=== PATIENT | female | born 1945 | race Caucasian/White ===

== ENCOUNTER 2018-12-14 17:41 | Emergency (ER) | payer OTHER ==
[~2018-12-14] VITALS: Ht 160 cm; Wt 64.4 kg
[2018-12-14] MEDS ORDERED: IV NORMAL SALINE 1000ML BAG 1,000 ML IV SCH (18:10)
[2018-12-14 18:17] LABS: BASO % 1 % (0-3); EOS # 0.1 x10^3/uL (0.0-0.7); EOS % 1 % (0-3); HEMATOCRIT 49.6 % (36.0-47.0); HEMOGLOBIN 16.6 g/dL (12.0-15.5); LYMPH # 1.3 x10^3/uL (1.0-4.8); LYMPH % 19 % (24-48); MEAN CORPUSCULAR HEMOGLOBIN 30 pg (25-35); MEAN CORPUSCULAR HGB CONC 34 g/dL (31-37); MEAN CORPUSCULAR VOLUME 89 fL (79-100); MONO # 0.5 x10^3/uL (0.0-1.1); MONO % 8 % (0-9); NEUT # 4.9 x10^3uL (1.8-7.7); NEUT % 72 % (31-73); PLATELET COUNT 193 x10^3/uL (140-400); RED BLOOD COUNT 5.58 x10^6/uL (3.50-5.40); RED CELL DISTRIBUTION WIDTH 13.4 % (11.5-14.5); WHITE BLOOD COUNT 6.8 x10^3/uL (4.0-11.0)
[2018-12-14 18:33] LABS: CALCIUM 9.2 mg/dL (8.5-10.1); CREATININE 0.7 mg/dL (0.6-1.0); GFR 82.5; POTASSIUM 3.8 mmol/L (3.5-5.1)
[2018-12-14 18:38] LABS: ALBUMIN 4.1 g/dL (3.4-5.0); ALBUMIN/GLOBULIN RATIO 1.3 (1.0-1.7); TOTAL BILIRUBIN 0.4 mg/dL (0.2-1.0); TOTAL PROTEIN 7.2 g/dL (6.4-8.2)
[2018-12-14 18:42] LABS: CREATINE KINASE 61 U/L (26-192)
--- NOTE | 2018-12-14 19:18 | PHYS DOC ---
Past Medical History Past Medical History: Hypotension Past Surgical History: Hip Replacement Additional Past Surgical Histo: LEFT HIP, THYROIDECTOMY,D&C Alcohol Use: None Drug Use: None Adult General Chief Complaint Chief Complaint: RAPID HEART RATE HPI HPI Patient is a 73 year old female who presents with complaining of palpitation. Patient states she had history of total thyroidectomy and taking [place] thyroid supplement. Increase of her medication recently because of hypothyroidism and had kind of weakness in afternoon and check her pulse that was faster than her usual and decided to cut down on the dose of Tylenol at supplement but continued to have a fast heartbeat and decided to come to ER. Patient states she tried to detox herself and eating only salad and vegetables and thinks maybe she had decrease of electrolyte or protein. Patient denies chest pain, shortness of breath, fever and chills, palpitation, focal neuro deficit, any medical problem except for thyroid problem. Review of Systems Review of Systems Constitutional: Denies fever or chills [] Eyes: Denies change in visual acuity, redness, or eye pain [] HENT: Denies nasal congestion or sore throat [] Respiratory: Denies cough or shortness of breath [] Cardiovascular: No additional information not addressed in HPI [] GI: Denies abdominal pain, nausea, vomiting, bloody stools or diarrhea [] : Denies dysuria or hematuria [] Musculoskeletal: Denies back pain or joint pain [] Integument: Denies rash or skin lesions [] Neurologic: Denies headache, focal weakness or sensory changes [] Endocrine: Denies polyuria or polydipsia [] All other systems were reviewed and found to be within normal limits, except as documented in this note. Current Medications Current Medications Current Medications Medications (Trade) Dose Ordered Sig/Maye Start Time Stop Time Status Last Admin Dose Admin Lorazepam (Ativan) 0.5 mg 1X ONCE 12/14/18 18:15 12/14/18 18:16 DC 12/14/18 18:44 0.5 MG Sodium Chloride 1,000 ml @ 1,000 mls/hr Q1H 12/14/18 18:10 12/14/18 19:09 DC 12/14/18 18:47 1,000 MLS/HR Allergies Allergies Allergies Coded Allergies Type Severity Reaction Last Updated Verified No Known Drug Allergies 12/14/18 No Physical Exam Physical Exam Constitutional: Well developed,mild distress, non-toxic appearance. [] HENT: Normocephalic, atraumatic, bilateral external ears normal, oropharynx moist, no oral exudates, nose normal. [] Eyes: PERRLA, EOMI, conjunctiva normal, no discharge. [] Neck: Normal range of motion, no tenderness, supple, no stridor. [] Cardiovascular:Heart rate regular rhythm, no murmur [] Lungs & Thorax: Bilateral breath sounds clear to auscultation [] Abdomen: Bowel sounds normal, soft, no tenderness, no masses, no pulsatile masses. [] Skin: Warm, dry, no erythema, no rash. [] Back: No tenderness, no CVA tenderness. [] Extremities: No tenderness, no cyanosis, no clubbing, ROM intact, no edema. [] Neurologic: Alert and oriented X 3, normal motor function, normal sensory function, no focal deficits noted. [] Psychologic: Affect anxious, judgement normal, mood normal. [] Current Patient Data Vital Signs Vital Signs Date Time Temp Pulse Resp B/P (MAP) Pulse Ox O2 Delivery O2 Flow Rate FiO2 12/14/18 19:30 96 20 138/69 (92) 99 Room Air 12/14/18 17:41 98.0 98.0 Lab Values Laboratory Tests Test 12/14/18 18:10 White Blood Count 6.8 x10^3/uL (4.0-11.0) Red Blood Count 5.58 x10^6/uL (3.50-5.40) H Hemoglobin 16.6 g/dL (12.0-15.5) H Hematocrit 49.6 % (36.0-47.0) H Mean Corpuscular Volume 89 fL (79-100) Mean Corpuscular Hemoglobin 30 pg (25-35) Mean Corpuscular Hemoglobin Concent 34 g/dL (31-37) Red Cell Distribution Width 13.4 % (11.5-14.5) Platelet Count 193 x10^3/uL (140-400) Neutrophils (%) (Auto) 72 % (31-73) Lymphocytes (%) (Auto) 19 % (24-48) L Monocytes (%) (Auto) 8 % (0-9) Eosinophils (%) (Auto) 1 % (0-3) Basophils (%) (Auto) 1 % (0-3) Neutrophils # (Auto) 4.9 x10^3uL (1.8-7.7) Lymphocytes # (Auto) 1.3 x10^3/uL (1.0-4.8) Monocytes # (Auto) 0.5 x10^3/uL (0.0-1.1) Eosinophils # (Auto) 0.1 x10^3/uL (0.0-0.7) Basophils # (Auto) 0.0 x10^3/uL (0.0-0.2) Sodium Level 141 mmol/L (136-145) Potassium Level 3.8 mmol/L (3.5-5.1) Chloride Level 102 mmol/L (98-107) Carbon Dioxide Level 25 mmol/L (21-32) Anion Gap 14 (6-14) Blood Urea Nitrogen 16 mg/dL (7-20) Creatinine 0.7 mg/dL (0.6-1.0) Estimated GFR (Cockcroft-Gault) 82.5 BUN/Creatinine Ratio 23 (6-20) H Glucose Level 137 mg/dL (70-99) H Calcium Level 9.2 mg/dL (8.5-10.1) Total Bilirubin 0.4 mg/dL (0.2-1.0) Aspartate Amino Transferase (AST) 26 U/L (15-37) Alanine Aminotransferase (ALT) 33 U/L (14-59) Alkaline Phosphatase 74 U/L (46-116) Creatine Kinase 61 U/L (26-192) Creatine Kinase MB (Mass) 1.2 ng/mL (0.0-3.6) Creatine Kinase MB Relative Index % (0-4) Troponin I Quantitative < 0.017 ng/mL (0.000-0.055) BS-Bqo-E-Type Natriuretic Peptide 349 pg/mL (0-124) H Total Protein 7.2 g/dL (6.4-8.2) Albumin 4.1 g/dL (3.4-5.0) Albumin/Globulin Ratio 1.3 (1.0-1.7) Lipase 162 U/L (73-393) Thyroid Stimulating Hormone (TSH) 18.639 uIU/mL (0.358-3.74) H Laboratory Tests 12/14/18 18:10 Laboratory Tests 12/14/18 18:10 EKG EKG EKG Interpreted by me. EKG at 1751 showed sinus tachycardia at rate of 113, left fourth axis, normal CA and QT intervals, no acute ST and T-wave abnormalities. Radiology/Procedures Radiology/Procedures Chest x-ray interpreted by me.. Chest x-ray did not show acute finding. Course & Med Decision Making Course & Med Decision Making Pertinent Labs and Imaging studies reviewed. (See chart for details) Evaluation of patient in ER showed 73-year-old female patient with complaining of Tylenol problem and palpitation and weakness. Patient taking Xarelto hydroxyzine supplement and had TSH of 18 and was advised to follow-up with her primary care physician. She was treated with IV fluid and felt better. discharge: I've spoken with the patient and/or caregivers. I've explained the patient's condition, diagnosis and treatment plan based on information available to me at this time. I've answered the patient's and/or caregivers questions and addressed any concerns. The patient and/or caregivers have a good understanding the patient's diagnosis, condition and treatment plan as can be expected at this point. Vital signs have been stabilized. The patient's condition is stable for discharge from the emergency department. The patient will pursue further outpatient evaluation with her primary care provider or other designated consulting physician as outlined in the discharge instructions. Patient and/or caregivers are agreeable to this plan of care and follow-up instructions have been explained in detail. The patient and/or caregivers have received these instructions in written format and expressed understanding of these discharge instructions. The patient and her caregivers are aware that if any significant change in condition or worsening of symptoms should prompt him to immediately return to this of the closest emergency department. If an emergent department is not readily available I would encourage him to call 911. Nate Disclaimer Nate Disclaimer This electronic medical record was generated, in whole or in part, using a voice recognition dictation system. Departure Departure Impression: Primary Impression: Palpitation Additional Impressions: Hypothyroidism Anxiety Dehydration Disposition: HOME, SELF-CARE (at 1716) Condition: IMPROVED Referrals: NON,STAFF (PCP) Patient Instructions: Dehydration, Adult, Palpitations, Thyroid Diseases, Thyroid-Stimulating Hormone Additional Instructions: Follow-up with your physician in one or 2 days regarding adjustment of doses of your thyroid medication Drink plenty of liquids Return to ER if not getting better Problem Qualifiers LOUANN WHITE MD Dec 14, 2018 19:17
[2018-12-14 19:30] VITALS: BP 138/69
--- NOTE | 2018-12-15 06:32 | EKG ---
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
--- NOTE | 2018-12-15 08:07 | RAD ---
PORTABLE CHEST 1V History: Palpitations Comparison: None. Findings: Single view of the chest is submitted. There is no infiltrate, pneumothorax, or effusion. The pericardial cardiac silhouette is within normal limits in size. Impression: 1. There is no evidence of acute cardiopulmonary disease. Electronically signed by: Jorge Hood MD (12/15/2018 8:04 AM) [id number]
== END 2018-12-14 19:49 | disposition home or self-care (01) ==
LOC: ER 17:41
DX: R00.2 Palpitations (principal); F41.9 Anxiety disorder, unspecified; E86.0 Dehydration; E89.0 Postprocedural hypothyroidism; Z96.649 Presence of unspecified artificial hip joint
CPT/HCPCS: 36415; 71045; 80053; 82553; 83690; 83880; 84443; 84484; 85025; 93005; 96361; 96374; 99285; J2060; J7030

== ENCOUNTER 2021-08-14 18:09 | Emergency (ER) | payer MEDICARE, OTHER ==
[~2021-08-14] VITALS: Ht 162.6 cm; Wt 67.7 kg
--- NOTE | 2021-08-14 18:17 | PHYS DOC ---
Past Medical History Past Medical History: Hypotension Past Surgical History: Hip Replacement Additional Past Surgical Histo: LEFT HIP, THYROIDECTOMY,D&C Smoking Status: Never Smoker Alcohol Use: None Drug Use: None General Adult HPI: HPI: Patient is a 75 year old female who presents with palpitations and feeling in her heart is racing, symptoms began a few days ago, worsening today. She reports that she has a history of an abnormal heart beat. She is unable to calculate any details of this. She sees a rabble furnace tender in [place]. She cannot recall the exact name of his rabble furnace tender, she cannot tell me the exact location of where this rabble furnace tender practices. She indicates that she had prev iously been on flecainide, but her doctor had placed her on daily diltiazem. She reports that she took extra doses of at bedtime flecainide over the past few nights, as directed by her, not her rabble furnace tender or any physician. She reports that she feels a little bit lightheaded, denies syncope. She denies chest pain or dyspnea. She reports for the past several days, she has had a "cold." She reports a dry cough. Denies hemoptysis. She reports that her also has a similar "cold." Neither the patient or her are vaccinated against Covid nor influenza. The patient reports that she "does not believe in COVID." She sees a manager of housekeeping who prescribes her multiple supplements, the names of most she cannot recall. One of them is "Q 10." She reports that she takes warfarin, and she reports compliance with this. I specifically asked her if she has a history of SVT, atrial flutter, atrial fibrillation. She and her report that they are not sure. She was seen here once in the ER in 2019 for issues related to her thyroid disease, dehydration and anxiety. She has not seen a rabble furnace tender here, no admissions here at this hospital. She denies any recent travel history. She denies recent hospitalization within the last 90 days. Review of Systems: Review of Systems: Constitutional: Denies fever or chills. [] Eyes: Denies change in visual acuity. [] HENT: Nasal congestion. Denies sore throat. Respiratory: Dry cough. Denies dyspnea. Cardiovascular: Denies chest pain or edema. [] GI: Denies abdominal pain, nausea, vomiting. Reports chronic diarrhea. : Denies urinary symptoms. Musculoskeletal: Denies back pain or joint pain. [] Integument: Denies rash. [] Neurologic: Denies headache, focal weakness or sensory changes. [] Psychiatric: Denies depression or anxiety. [] Heart Score: C/O Chest Pain: No Risk Factors: Risk Factors: DM, Current or recent (<one month) smoker, HTN, HLP, family history of CAD, obesity. Risk Scores: Score 0 - 3: 2.5% MACE over next 6 weeks - Discharge Home Score 4 - 6: 20.3% MACE over next 6 weeks - Admit for Clinical Observation Score 7 - 10: 72.7% MACE over next 6 weeks - Early Invasive Strategies Allergies: Allergies: Allergies Coded Allergies Type Severity Reaction Last Updated Verified No Known Drug Allergies 12/14/18 No Physical Exam: PE: Constitutional: Well developed, well nourished, no acute distress, non-toxic appearance. [] HENT: Normocephalic, atraumatic Eyes: Sclera are clear and anicteric Neck: Normal range of motion, no tenderness, supple, no stridor. Trachea midline. No JVD. Cardiovascular:Irregulary irregular, tachycardic, +2 radial and +2 dorsalis pedis pulses bilaterally Lungs & Thorax: Bilateral breath sounds clear to auscultation, no rales, rhonchi or wheezing Abdomen: Abdomen is soft, non-distended, non-tender to palpation, normal bowel sounds Skin: Warm, dry, no erythema, no rash. [] Back: No tenderness, no CVA tenderness. [] Extremities: No tenderness, no cyanosis, no clubbing, ROM intact, no edema. No calf tenderness. Neurologic: Alert and oriented X 3, normal motor function, normal sensory function, no focal deficits noted. [] Psychologic: Affect is somewhat bizarre and anxious EKG: EKG: EKG is interpreted at 1838 Rhythm is atrial fibrillation with RVR Rate is 152 bpm [place] is left No STEMI Radiology/Procedures: Radiology/Procedures: IMAGING REPORT Signed PATIENT: JADEN FALL ACCOUNT: [id number] : 1945 LOCATION: ER AGE: 75 SEX: F EXAM STATUS: REG ER ORD. PHYSICIAN: FLACO COLUNGA DO REASON: cough PROCEDURE: PORTABLE CHEST 1V Single view chest dated 08/14/2021 7:20 PM: COMPARISON: 12/14/2018 Clinical Indication: Cough. Findings: Single upright portable exam of the chest was performed. Heart and mediastinal contours are stable. Lungs are clear. No consolidation or pleural effusion. No pneumothorax. IMPRESSION: No acute radiographic abnormality. Electronically signed by: Ronny Huerta MD (08/14/2021 7:22 PM) [facility] [place] and SIGNED BY: RONNY HUERTA MD DATE: 08/14/21 [id number] 0 Course & Med Decision Making: Course & Med Decision Making Pertinent Labs and Imaging studies reviewed. (See chart for details) The patient is given 1 dose of IV diltiazem. She spontaneously converted to a sinus rhythm, rate in the 80s and 90s. Her blood pressure is stable. She continues to deny chest pain or dyspnea. No evidence of respiratory distress or hypoxia. Covid assay is positive. I explained that this was expected, given her unvaccinated status as well as her symptoms. There is no current indication of obvious Covid pneumonitis on chest x-ray. No evidence of hypoxia or respiratory distress. Troponin is not indicative of acute ischemia. She denies chest pain. EKG demonstrates atrial fibrillation with RVR, without acute ischemic changes. There is no current indication for admission, further invasive exams or transfer at this time. I did strongly encouraged her to take her medications only as specifically directed by her rabble furnace tender. She seems to be at least mildly confused about how to take her medications appropriately, I recommend she contact her physician's office in the morning to confirm these doses and this regimen, to be taken only as directed and as appropriately. The patient is indignant about her diagnosis of Covid. I explained that she and her both have Covid, given that he had symptoms prior to onset of hers, and they should both self isolate and perform contact tracing. She has reportedly been around multiple people, including multiple family members within the last 14 days, who are also unvaccinated. She is to contact them and let them know of her positive Covid status, they must quarantine and act accordingly and appropriately. The patient asks me multiple times about prescribing ivermectin or hydroxychloroquine. I explained that this is inappropriate, I will not do this, and there is no evidence-based science for prescribing or taking these medications in the setting of Covid. She argues with me multiple times, she reports that she "knows people" who have taken these medicines before. I explained that this is still not appropriate, and just because she anecdotally knows someone who somehow was able to obtain these medications and survived, does not make this appropriate medical care, and with her medical conditions, I strongly discouraged her from seeking out these inappropriate, nonscientific, and potentially dangerous or deadly medications. I did tell her to contact her PCP to discuss possible outpatient monoclonal antibody infusion, as she would qualify. I recommend she get a pulse oximeter, and she should monitor for any evidence of hypoxia with worsening dyspnea or chest pain symptoms. Strict re turn precautions and home care instructions are given. She verbalizes understanding. She is going to be discharged home, in stable condition Dragon Disclaimer: Nate Disclaimer: This electronic medical record was generated, in whole or in part, using a voice recognition dictation system. Departure Departure Impression: Primary Impression: Atrial fibrillation with rapid ventricular response Additional Impression: COVID-19 Disposition: HOME / SELF CARE / HOMELESS Condition: STABLE Referrals: ALYSSA ROWELL MD (PCP) Patient Instructions: Atrial Fibrillation Additional Instructions: You have been tested for or diagnosed with COVID-19. It is an infection caused by a new type of coronavirus. COVID-19 will cause cold-like or mild flu symptoms in most. It can cause more severe symptoms like problems breathing in some. There is no treatment for COVID-19. The body will clear the infection over time. Self-care will help to ease discomfort. Steps to Take: Self-Care Rest as needed. Healthy habits may help you feel better. Steps include: Choose healthy foods including fruits and vegetables. Drink water throughout the day. Get plenty of sleep each night. If you smoke, try to quit. It may ease breathing. Avoid alcohol. Keep Others Healthy The virus can spread to others. Droplets are released every time you sneeze or cough. The droplets can get into the mouth, nose, or eyes of people near you and lead to infection. To lower the chances of spreading COVID-19 to others: Stay at home until your doctor has said it is safe to leave. If you tested positive this will mean staying isolated until both of the following are true: At least 7 days have passed since the start of illness. You are free of fever for at least 72 hours without the use of medicine. During this time: - Avoid public areas, events, or transportation. Do not return to work or school until your doctor has said it is safe to do so. - Call ahead if you need to go to a medical center. Let them know you may have COVID-19. It will help them guide you where to go. They may also ask you to wear a facemask when you come to the office. - If you call for emergency medical services, let them know you may have COVID- 19. While at home: - Try to avoid close contact with others. Stay about 6 feet away. - If possible, spend most of your time in a separate room from others. - Use a face mask if you will be in close contact with others such as sharing a room or vehicle. - Have someone wipe down common surfaces in the home. Use household spring upholsterer every day on areas like doorknobs, counters, or sinks. - Cough or sneeze into a tissue. Throw the tissue away right after use. If a tissue is not available, cough or sneeze into your elbow. - Wash your hands often. Wash them after sneezing or coughing. Use soap and water and wash for at least 20 seconds. Alcohol based hand exhibit cleaner can be used if soap and water is not available. - Do not prepare food for others. Avoid sharing personal items like forks, spoons, or toothbrushes. - Avoid close contact with pets while you are sick. There is no evidence of the virus passing to pets. This is a safety step until more is known about this virus. Isolation can be frustrating. Social interaction can help. Keep in touch with friends and family through phone and tech options. You can still interact with others in your home, just keep a safe distance of about 6 feet. Follow-up: Your doctors office will check in with you to see if there are any changes in your health. You may be asked to keep track of symptoms to share with them. They will also let you know when you are clear to be in public again. Problems to Look Out For: Contact your doctor if your recovery is not going as you expect. Get emergency care if you have problems such as: - Trouble breathing - Nonstop chest pain or pressure - Changes in awareness, confusion, or problems waking - Lips or face have bluish color - Worsening of symptoms If you think you have an emergency, call for emergency medical services right away. As taken from [facility] [place] [facility] Please watch your oxygen at home, I recommend obtaining an full-[id number]-[id number] pulse oximeter, and if you develop severe chest pain or shortness of breath, with oxygen levels below 90%, you need to return to the ER immediately. Also return for any severe abdominal pain, uncontrolled vomiting, dehydration, focal weakness, if you are acutely injured or suffering any trauma, or for any other concerns. Please only take your antiarrhythmics as directed by your rabble furnace tender, I recommend contacting their office tomorrow to confirm your spe cific doses and regimen instructions. Continue to take your warfarin. Your INR level is therapeutic today. You must contact all people that you have been in contact within the last 14 days, explained that you are positive for Covid, in order to appropriately perform contact tracing, so these people can quarantine. In general, on average, if symptoms are to worsen it will be between day 7 and 10, so please know that your symptoms may potentially progress or worsen, though I am hopeful that that will not be the case for you. Please seek emergency care if that is the case. You may wish to contact your primary care physician to discuss outpatient monoclonal antibody infusion. FLACO COLUNGA DO Aug 14, 2021 18:17
[2021-08-14 18:58] LABS: BASO % 1 % (0-3); EOS % 0 % (0-3); HEMATOCRIT 46.9 % (36.0-47.0); HEMOGLOBIN 16.2 g/dL (12.0-15.5); LYMPH # 0.7 x10^3/uL (1.0-4.8); LYMPH % 18 % (24-48); MEAN CORPUSCULAR HEMOGLOBIN 31 pg (25-35); MEAN CORPUSCULAR HGB CONC 35 g/dL (31-37); MEAN CORPUSCULAR VOLUME 90 fL (79-100); MONO # 0.5 x10^3/uL (0.0-1.1); MONO % 13 % (0-9); NEUT # 2.7 x10^3/uL (1.8-7.7); NEUT % 69 % (31-73); PLATELET COUNT 107 x10^3/uL (140-400); RED BLOOD COUNT 5.23 x10^6/uL (3.50-5.40); RED CELL DISTRIBUTION WIDTH 13.8 % (11.5-14.5); WHITE BLOOD COUNT 3.9 x10^3/uL (4.0-11.0)
[2021-08-14 19:07] LABS: PROTHROMBIN TIME PATIENT 23.4 SEC (11.7-14.0)
--- NOTE | 2021-08-14 19:07 | EKG ---
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
[2021-08-14 19:11] LABS: CALCIUM 7.8 mg/dL (8.5-10.1); CREATININE 0.5 mg/dL (0.6-1.0); GFR 120.9
[2021-08-14 19:17] LABS: ALBUMIN 3.2 g/dL (3.4-5.0); ALBUMIN/GLOBULIN RATIO 0.9 (1.0-1.7); MAGNESIUM 2.2 mg/dL (1.8-2.4); TOTAL BILIRUBIN 0.3 mg/dL (0.2-1.0); TOTAL PROTEIN 6.6 g/dL (6.4-8.2)
--- NOTE | 2021-08-14 19:24 | RAD ---
Single view chest dated 08/14/2021 7:20 PM: COMPARISON: 12/14/2018 Clinical Indication: Cough. Findings: Single upright portable exam of the chest was performed. Heart and mediastinal contours are stable. L ungs are clear. No consolidation or pleural effusion. No pneumothorax. IMPRESSION: No acute radiographic abnormality. Electronically signed by: Ronny Huerta MD (08/14/2021 7:22 PM) LILI
[2021-08-14 19:38] VITALS: BP 128/61
[2021-08-14] MEDS ORDERED: POTASSIUM CHLORIDE 20 MEQ TABLET.ER. PO ONE (19:45)
[2021-08-14 20:09] LABS: INFLUENZA A PATIENT NEGATIVE (NEGATIVE); INFLUENZA B PATIENT NEGATIVE (NEGATIVE)
== END 2021-08-14 21:10 | disposition home or self-care (01) ==
LOC: ER 18:09
DX: U07.1 COVID-19 (principal); I48.20 Chronic atrial fibrillation, unspecified; I10 Essential (primary) hypertension
CPT/HCPCS: 36415; 71045; 80053; 83735; 83880; 84439; 84443; 84484; 85025; 85610; 85730; 87426; 87804; 93005; 96374; 99285; J3490

== ENCOUNTER 2021-11-02 11:15 | Inpatient (IN) | payer MEDICARE ==
[~2021-11-02] VITALS: Ht 160 cm; Wt 69.6 kg
[2021-11-02 11:56] LABS: BASO # 0.1 x10^3/uL (0.0-0.2); BASO % 1 % (0-3); EOS # 0.1 x10^3/uL (0.0-0.7); EOS % 1 % (0-3); HEMATOCRIT 39.1 % (36.0-47.0); HEMOGLOBIN 12.9 g/dL (12.0-15.5); LYMPH % 10 % (24-48); MEAN CORPUSCULAR HEMOGLOBIN 30 pg (25-35); MEAN CORPUSCULAR HGB CONC 33 g/dL (31-37); MEAN CORPUSCULAR VOLUME 92 fL (79-100); MONO # 0.9 x10^3/uL (0.0-1.1); MONO % 8 % (0-9); NEUT # 8.3 x10^3/uL (1.8-7.7); NEUT % 80 % (31-73); PLATELET COUNT 227 x10^3/uL (140-400); RED BLOOD COUNT 4.26 x10^6/uL (3.50-5.40); RED CELL DISTRIBUTION WIDTH 14.3 % (11.5-14.5); WHITE BLOOD COUNT 10.3 x10^3/uL (4.0-11.0)
[2021-11-02] MEDS ORDERED: AMIODARONE 150 MG in IV DEXTROSE 5% 100ML 100 ML IV ONE (12:00)
--- NOTE | 2021-11-02 12:04 | EKG ---
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
[2021-11-02 12:08] LABS: PROTHROMBIN TIME PATIENT 25.1 SEC (11.7-14.0)
--- NOTE | 2021-11-02 12:09 | RAD ---
XR CHEST 1V History: Short of air. Comparison: 10/15/2020 Technique: Portable AP radiograph of the chest. Findings: The lungs are adequately and symmetrically inflated. No focal airspace consolidation, pleural effusio n or pneumothorax. Cardiomediastinal silhouette and pulmonary vasculature are within normal limits. R esuscitation pads overlie the cardiomediastinal silhouette. Degenerative changes of the right shoulde r. Soft tissues are unremarkable. Impression: 1. No acute cardiopulmonary process. Electronically signed by: Eusebio Casey MD (11/02/2021 12:06 PM) [id number]
[2021-11-02] MEDS: AMIODARONE 450 MG in IV DEXTROSE 5% 250 ML IV PRN ×2 (12:14→16:08)
[2021-11-02 12:22] LABS: CALCIUM 8.9 mg/dL (8.5-10.1); CREATININE 0.7 mg/dL (0.6-1.0); POTASSIUM 3.2 mmol/L (3.5-5.1)
--- NOTE | 2021-11-02 12:32 | PDOC2 ---
NELSON EMMANUEL JOB COACH 11/02/21 1232: CARDIAC CONSULT DATE OF CONSULT Date of Consult DATE: 11/02/21 TIME: 12:21 REASON FOR CONSULT Reason for Consult: AFIB RVR REFERRING PHYSICIAN Referring Physician: [facility] SOURCE Source: Chart review, Patient HISTORY OF PRESENT ILLNESS HISTORY OF PRESENT ILLNESS This is a pleasant 75 yo female admitted for complains of not feeling good and fast heart rate. Reports that she was getting her INR today at the lab. she did not feel well and check her carotid pulse and it was fast. She felt weak. No lightheadedness. Denies any chest pain or SOA. No fever or chills and just had RTHA at [facility] last Friday and discharge Friday. She has hx of AFIB but no hx of VTE, and CAD. She sees [place]. Murry [place] [facility]. She takes warfarin and has been taking this for stroke prevention in over a yr at least. She takes flecainide at home. Denies hx of cardiomyopathy as well. Her right hip pain is controlled and currently has a wound vac on it. PAST MEDICAL HISTORY Cardiovascular: AFIB, HTN Pulmonary: Other (covid-19) Musculoskeletal: Osteoarthritis Dermatology: Other (right hip incision) PAST SURGICAL HISTORY Past Surgical History: Total hip replacement (right recent and left previous), Other (thyroidectomy) FAMILY HISTORY Family History: Heart Disease SOCIAL HISTORY Smoke: No ALCOHOL: none Drugs: None Lives: with Family ALLERGIES ALLERGIES: Coded Allergies: No Known Drug Allergies (Unverified , 11/02/21) ROS Review of System 14 point ROS evaluated with pertinent positives noted per HPI PHYSICAL EXAM General: Alert, Oriented X3, Cooperative, No acute distress HEENT: Atraumatic, Mucous membr. moist/pink Lungs: Other (diminished bases) Heart: No murmurs, Other (AFIB RVR) Extremities: No cyanosis, No edema Skin: No breakdown Neuro: Normal speech, Sensation intact Psych/Mental Status: Mental status NL, Mood NL MUSCULOSKELETAL: Osteoarthritic changes both hands VITALS/I&O VITALS/I&O: Vital Signs Date Time Temp Pulse Resp B/P (MAP) Pulse Ox O2 Delivery O2 Flow Rate FiO2 11/02/21 11:15 98.7 201 22 148/74 (98) 99 Room Air 98.7 LABS Lab: Laboratory Tests Test 11/02/21 11:34 White Blood Count 10.3 x10^3/uL (4.0-11.0) Red Blood Count 4.26 x10^6/uL (3.50-5.40) Hemoglobin 12.9 g/dL (12.0-15.5) Hematocrit 39.1 % (36.0-47.0) Mean Corpuscular Volume 92 fL (79-100) Mean Corpuscular Hemoglobin 30 pg (25-35) Mean Corpuscular Hemoglobin Concent 33 g/dL (31-37) Red Cell Distribution Width 14.3 % (11.5-14.5) Platelet Count 227 x10^3/uL (140-400) Neutrophils (%) (Auto) 80 % (31-73) H Lymphocytes (%) (Auto) 10 % (24-48) L Monocytes (%) (Auto) 8 % (0-9) Eosinophils (%) (Auto) 1 % (0-3) Basophils (%) (Auto) 1 % (0-3) Neutrophils # (Auto) 8.3 x10^3/uL (1.8-7.7) H Lymphocytes # (Auto) 1.0 x10^3/uL (1.0-4.8) Monocytes # (Auto) 0.9 x10^3/uL (0.0-1.1) Eosinophils # (Auto) 0.1 x10^3/uL (0.0-0.7) Basophils # (Auto) 0.1 x10^3/uL (0.0-0.2) Prothrombin Time 25.1 SEC (11.7-14.0) H Prothrombin Time INR 2.3 (0.8-1.1) H Activated Partial Thromboplast Time 44 SEC (24-38) H Laboratory Tests 11/02/21 11:34 ASSESSMENT/PLAN ASSESSMENT/PLAN 1. AFIB RVR: on home flecainide last dose last noc 2. Reported S/P RTHA: 10/29/2021 at [facility] 3. HTN: controlled 4. Hypothyroidism: on replacement Recommendations 1. Hold amiodarone [id number]. Lopressor IV x1 and if BP remains normotensive then will start on metoprolol 25 mg PO q6. If BP is at low end then will consider digoxin. 2. Continue Warfarin for stroke prevention 3. Will obtain cardiac records from [facility]. VIJAY MOONEY MD 11/02/21 1641: CARDIAC CONSULT ASSESSMENT/PLAN ASSESSMENT/PLAN The patient was seen and interviewed as well as examined at the bedside. The chart was reviewed. The case was discussed. Agree with the plan of care. NELSON EMMANUEL APRN Nov 02, 2021 12:32 VIJAY MOONEY MD Nov 02, 2021 16:41
[2021-11-02 12:35] LABS: ALBUMIN/GLOBULIN RATIO 0.7 (1.0-1.7); TOTAL BILIRUBIN 0.8 mg/dL (0.2-1.0); TOTAL PROTEIN 7.1 g/dL (6.4-8.2)
[2021-11-02] MEDS ORDERED: METOPROLOL IV PUSH 5 MG/5 ML VIAL. IVP ONE (12:45)
--- NOTE | 2021-11-02 12:51 | PHYS DOC ---
Past Medical History Past Medical History: Hypotension Past Surgical History: Hip Replacement Additional Past Surgical Histo: LEFT HIP, THYROIDECTOMY,D&C Smoking Status: Never Smoker Alcohol Use: None Drug Use: None Adult General Chief Complaint Chief Complaint: RAPID HEART RATE HPI HPI The patient is a 75-year-old female with a history of paroxysmal A. fib on flecainide and warfarin. She had a right total hip arthroplasty completed last Friday at [facility], discharged on Friday (wound vac currently in place). She is back on her warfarin and today was in the clinic for an INR check when she felt fatigued, checked her pulse and found that it was fast. She was brought to the hospital for evaluation. Upon initial evaluation in the emergency department, heart rate elevated and rhythm on the monitor is suggestive of atrial fibrillation. She denies any chest pain or shortness of breath. Vital signs are appropriate aside from rapid heart rate. She is in no acute distress. Review of Systems Review of Systems A 12 point review of systems was completed and was negative except where noted in HPI above. Current Medications Current Medications Current Medications Medications (Trade) Dose Ordered Sig/Maye Start Time Stop Time Status Last Admin Dose Admin Amiodarone HCl 150 mg/Dextrose 103 ml @ 618 mls/hr 1X ONCE 11/02/21 12:00 11/02/21 12:09 DC Amiodarone HCl 450 mg/Dextrose 259 ml @ 34.533 mls/ hr CONT PRN 11/02/21 12:00 11/03/21 11:59 Metoprolol Tartrate (Lopressor Vial) 5 mg 1X ONCE 11/02/21 12:45 11/02/21 12:46 11/02/21 12:23 5 MG Potassium Chloride (Klor-Con) 40 meq 1X ONCE 11/02/21 13:00 11/02/21 13:01 Allergies Allergies Allergies Coded Allergies Type Severity Reaction Last Updated Verified No Known Drug Allergies 11/02/21 No Physical Exam Physical Exam Elderly female appearing nontoxic and in no acute distress. Head is normocephalic and atraumatic. Neck is supple and nontender. Oropharynx is moist. Lungs are clear to auscultation at all stations. There is a normal S1 and S2 without rubs or gallops and capillary refill is appropriate, less than 2 seconds globally. There is a tachycardic, irregular rhythm. Abdomen is soft, nontender and nondistended. Skin is warm and dry without cyanosis, clubbing or edema. Psychiatrically, the patient demonstrates appropriate mood and affect and is alert. Evaluation of the extremities reveals BUEs and BLEs neurovascularly intact distally with strength 5 out of 5, sensation intact light touch in all nerve distributions, radial, DP and PT pulses 2+ and equal bilaterally, capillary refill less than 2 seconds, hands and feet warm and well- perfused. No dependent peripheral edema distally. No calf tenderness or swelling bilaterally. Homans test is negative bilaterally. There is a wound VAC in place to the right upper lateral thigh with no erythema, warmth, swelling or tenderness noted. Current Patient Data Vital Signs Vital Signs Date Time Temp Pulse Resp B/P (MAP) Pulse Ox O2 Delivery O2 Flow Rate FiO2 11/02/21 12:23 166 122/55 11/02/21 11:15 98.7 22 99 Room Air 98.7 Lab Values Laboratory Tests Test 11/02/21 11:34 White Blood Count 10.3 x10^3/uL (4.0-11.0) Red Blood Count 4.26 x10^6/uL (3.50-5.40) Hemoglobin 12.9 g/dL (12.0-15.5) Hematocrit 39.1 % (36.0-47.0) Mean Corpuscular Volume 92 fL (79-100) Mean Corpuscular Hemoglobin 30 pg (25-35) Mean Corpuscular Hemoglobin Concent 33 g/dL (31-37) Red Cell Distribution Width 14.3 % (11.5-14.5) Platelet Count 227 x10^3/uL (140-400) Neutrophils (%) (Auto) 80 % (31-73) H Lymphocytes (%) (Auto) 10 % (24-48) L Monocytes (%) (Auto) 8 % (0-9) Eosinophils (%) (Auto) 1 % (0-3) Basophils (%) (Auto) 1 % (0-3) Neutrophils # (Auto) 8.3 x10^3/uL (1.8-7.7) H Lymphocytes # (Auto) 1.0 x10^3/uL (1.0-4.8) Monocytes # (Auto) 0.9 x10^3/uL (0.0-1.1) Eosinophils # (Auto) 0.1 x10^3/uL (0.0-0.7) Basophils # (Auto) 0.1 x10^3/uL (0.0-0.2) Prothrombin Time 25.1 SEC (11.7-14.0) H Prothrombin Time INR 2.3 (0.8-1.1) H Activated Partial Thromboplast Time 44 SEC (24-38) H Sodium Level 143 mmol/L (136-145) Potassium Level 3.2 mmol/L (3.5-5.1) L Chloride Level 102 mmol/L (98-107) Carbon Dioxide Level 26 mmol/L (21-32) Anion Gap 15 (6-14) H Blood Urea Nitrogen 16 mg/dL (7-20) Creatinine 0.7 mg/dL (0.6-1.0) Estimated GFR (Cockcroft-Gault) 82.0 BUN/Creatinine Ratio 23 (6-20) H Glucose Level 99 mg/dL (70-99) Calcium Level 8.9 mg/dL (8.5-10.1) Total Bilirubin 0.8 mg/dL (0.2-1.0) Aspartate Amino Transferase (AST) 49 U/L (15-37) H Alanine Aminotransferase (ALT) 39 U/L (14-59) Alkaline Phosphatase 66 U/L (46-116) Troponin I High Sensitivity 10 ng/L (4-50) YC-Vmg-N-Type Natriuretic Peptide 896 pg/mL (0-124) H Total Protein 7.1 g/dL (6.4-8.2) Albumin 3.0 g/dL (3.4-5.0) L Albumin/Globulin Ratio 0.7 (1.0-1.7) L Laboratory Tests 11/02/21 11:34 Laboratory Tests 11/02/21 11:34 EKG EKG Atrial fibrillation, rate 200, no acute ST elevation or depression, EP interpretation. Radiology/Procedures Radiology/Procedures XR CHEST 1V History: Short of air. Comparison: 10/15/2020 Technique: Portable AP radiograph of the chest. Findings: The lungs are adequately and symmetrically inflated. No focal airspace consolidation, pleural effusion or pneumothorax. Cardiomediastinal silhouette and pulmonary vasculature are within normal limits. Resuscitation pads overlie the cardiomediastinal silhouette. Degenerative changes of the right shoulder. Soft tissues are unremarkable. Impression: 1. No acute cardiopulmonary process. Electronically signed by: Eusebio Thornton MD (11/02/2021 12:06 PM) [id number] DICTATED and SIGNED BY: EUSEBIO THORNTON MD DATE: 11/02/21 [id number] 0 Course & Med Decision Making Course & Med Decision Making Initial plan was for amiodarone bolus and drip for chemical cardioversion but, as patient is already on flecainide and QTC is a little prolonged, they would prefer rate control today with metoprolol (please see their note) with probable chemical or electrical cardioversion tomorrow. Dose Lopressor given. Patient resting comfortably in no distress. Graciously accepted for admission by Dr. Kim. Critical care time was 42 minutes. Dragon Disclaimer Dragon Disclaimer This electronic medical record was generated, in whole or in part, using a voice recognition dictation system. Departure Departure Impression: Primary Impression: Atrial fibrillation with rapid ventricular response Disposition: ADMITTED INPATIENT Condition: STABLE Referrals: ALYSSA ROWELL MD (PCP) DUNCAN SALAS MD Nov 02, 2021 12:51
[2021-11-02] MEDS ORDERED: POTASSIUM CHLORIDE 20 MEQ TABLET.ER. PO ONE (13:00)
[2021-11-02] MEDS ORDERED: ACETAMINOPHEN 325 MG TABLET. PO PRN ×2 (13:15→16:15)
[2021-11-02] MEDS ORDERED: ONDANSETRON PF 4 MG/2 ML VIAL. IVP PRN ×2 (13:15→16:15)
[2021-11-02] MEDS ORDERED: DIGOXIN IV 500 MCG/2 ML AMPUL. IV ONE (14:00)
[2021-11-02] MEDS ORDERED: DILT240C2 PO (15:23)
[2021-11-02] MEDS ORDERED: PROG100C10 PO (15:23)
[2021-11-02] MEDS ORDERED: ESCITALOPRAM OX10 MG PO (15:23)
[2021-11-02] MEDS ORDERED: OMEG1CAP50 PO (15:23)
[2021-11-02] MEDS ORDERED: CHOL200044 PO (15:23)
[2021-11-02] MEDS ORDERED: LACT1CAP37 PO (15:23)
[2021-11-02] MEDS ORDERED: D-MA500C PO (15:23)
[2021-11-02] MEDS ORDERED: WARF2.5T71 PO (15:23)
[2021-11-02] MEDS ORDERED: FLEC100T PO (15:23)
[2021-11-02] MEDS ORDERED: UBID100C40 PO (15:23)
[2021-11-02] MEDS ORDERED: ZINC50TA39 PO (15:23)
[2021-11-02] MEDS ORDERED: LEVO150T PO (15:23)
--- NOTE | 2021-11-02 16:03 | PDOC1 ---
History and Physical Date of Service: DOS: DATE: 11/02/21 TIME: 15:59 Chief Complaint: Chief Complain: Rapid heart rate History of Present Illness: HPI: 75-year-old female with past medical history of paroxysmal atrial fibrillation on flecainide and warfarin who had a right total hip arthroplasty on Friday at [facility] and discharged Friday with a wound VAC still in place. Apparently, patient went to INR clinic for her warfarin check and she was found to be very fatigued and her pulse was checked at that time and was in the 160s. Patient was brought to the hospital for evaluation. Evaluated the ED if patient was found to have RVR and was in atrial fibrillation. Denies any chest pain or shortness of breath. No acute distress. Denies any fevers or diarrhea or bleeding. Of note, Patient patient has been on alternative supplements for her hypothyroidism after her thyroidectomy in 2004. Patient states that her TSH has never been normal and her homeopathic PCP has tried many different other supplements to control that. She states that she has been as high as 160 mcg of Synthroid without control of her thyroid. Patient states that she had a total thyroidectomy for a possible cancer. However, she states that they had never told her that there was a large nodule. She is unsure of the pathology results. She did not receive chemotherapy or radioactive ablation. Past Medical/Surgical History: PMH/PSH: Past Medical History: Hypotension Past Surgical History: Hip Replacement, LEFT HIP, THYROIDECTOMY,D&C Allergies: Allergies: Coded Allergies: No Known Drug Allergies (Unverified , 11/02/21) Family History: Family History: Reviewed with no relative findings in the chart Social History: Social History: Smoking Status: Never Smoker Alcohol Use: None Drug Use: None Current Medications: Current Medications Current Medications Amiodarone HCl 150 mg/Dextrose 103 ml @ 618 mls/hr 1X ONCE IV ; Start 11/02/21 at 12:00; Stop 11/02/21 at 12:09; Status DC Amiodarone HCl 450 mg/Dextrose 259 ml @ 34.533 mls/ hr CONT PRN IV SEE I/O RECORD; Start 11/02/21 at 12:00; Stop 11/03/21 at 11:59 Metoprolol Tartrate (Lopressor Vial) 5 mg 1X ONCE IVP Last administered on 11/02/21at 12:23; Start 11/02/21 at 12:45; Stop 11/02/21 at 12:46; Status DC Potassium Chloride (Klor-Con) 40 meq 1X ONCE PO Last administered on 11/02/21at 13:25; Start 11/02/21 at 13:00; Stop 11/02/21 at 13:01; Status DC Ondansetron HCl (Zofran) 4 mg PRN Q8HRS PRN IVP NAUSEA/VOMITING; Start 11/02/21 at 13:15; Stop 11/03/21 at 13:14 Acetaminophen (Tylenol) 650 mg PRN Q4HRS PRN PO FEVER > 100.3'F; Start 11/02/21 at 13:15; Stop 11/03/21 at 13:14 Digoxin (Lanoxin) 500 mcg 1X ONCE IV Last administered on 11/02/21at 14:15; Start 11/02/21 at 14:00; Stop 11/02/21 at 14:01; Status DC Metoprolol Tartrate (Lopressor) 25 mg Q6HRS PO ; Start 11/02/21 at 18:00 Active Scripts Active Reported Azo D-Mannose (D-Mannose) 500 Mg Capsule 500 Mg PO DAILY Probiotic (Lactobacillus Combo No.10) 1 Each Capsule 1 Tab PO DAILY 30 Days Progesterone (Progesterone,Micronized) 100 Mg Capsule 1 Cap PO QHS 30 Days Warfarin Sodium 2.5 Mg Tablet 2.5 Mg PO DAILY Flecainide Acetate 100 Mg Tablet 0.5 Tab PO HS Cardizem Cd (Diltiazem Hcl) 240 Mg Cap.er.24h 0.5 Cap PO HS Escitalopram Oxalate 10 Mg Tablet 1 Tab PO DAILY Fish Oil 1,000 Mg Softgel ([place]-3 Fatty Acids/Fish Oil) 1 Each Capsule 1 Cap PO DAILY 30 Days Co Q-10 (Ubidecarenone) 100 Mg Capsule 100 Mg PO DAILY D3-2000 (Cholecalciferol (Vitamin D3)) 50 Mcg Capsule 50 Mcg PO DAILY Zinc 50 Mg Tablet 1 Tab PO DAILY 30 Days Synthroid (Levothyroxine Sodium) 150 Mcg Tablet 1 Tab PO DAILY ROS: Review of Systems Review of System REVIEW OF SYSTEMS: GENERAL: Positive for fatigue SKIN: No bruising, hair changes or rashes. EYES: No blurred, double or loss of vision. NOSE AND THROAT: No history of nosebleeds, hoarseness or sore throat. HEART: No history of palpitations, chest pain or shortness of breath on exertion. LUNGS: Denies cough, hemoptysis, wheezing or shortness of breath. GASTROINTESTINAL: Denies changes in appetite, nausea, vomiting, diarrhea or constipation. GENITOURINARY: No history of frequency, urgency, hesitancy or nocturia. NEUROLOGIC: Denies history of numbness, tingling, or tremor. PSYCHIATRIC: No history of panic, anxiety or depression. ENDOCRINE: No history of heat or cold intolerance, polyuria or polydipsia. EXTREMITIES: Denies joint pain, pain on walking or stiffness. Physical Exam: Vital Signs: Vital Signs Date Time Temp Pulse Resp B/P (MAP) Pulse Ox O2 Delivery O2 Flow Rate FiO2 11/02/21 14:32 124 20 112/60 (77) 99 Room Air 11/02/21 11:15 98.7 98.7 Physcial Exam: General: Well developed, well nourished, no acute distress, well appearing HEENT: Pupils equally round and reactive to light, EOMI, no discharge, normal conjunctiva Neck: Supple, no nuchal rigidity, no JVD, trachea midline, no tenderness Cardiac: Irregularly irregular, no murmurs, no gallops, no rubs Chest/Lungs: CTAB, no wheeze, no rhonchi, no crackles Abdomen: soft, non-distended, no guarding, no peritoneal signs, non-tender Back: No tenderness Extremities: no edema, pulses intact, non-tender,capillary refill <3 sec bilateral upper and lower extremities. Wound VAC intact with no active bleeding or surrounding erythema Neuro: Alert and oriented x 4, no focal deficits, normal speech Labs: Labs: Laboratory Tests Test 11/02/21 11:34 11/02/21 14:37 White Blood Count 10.3 x10^3/uL (4.0-11.0) Red Blood Count 4.26 x10^6/uL (3.50-5.40) Hemoglobin 12.9 g/dL (12.0-15.5) Hematocrit 39.1 % (36.0-47.0) Mean Corpuscular Volume 92 fL (79-100) Mean Corpuscular Hemoglobin 30 pg (25-35) Mean Corpuscular Hemoglobin Concent 33 g/dL (31-37) Red Cell Distribution Width 14.3 % (11.5-14.5) Platelet Count 227 x10^3/uL (140-400) Neutrophils (%) (Auto) 80 % (31-73) Lymphocytes (%) (Auto) 10 % (24-48) Monocytes (%) (Auto) 8 % (0-9) Eosinophils (%) (Auto) 1 % (0-3) Basophils (%) (Auto) 1 % (0-3) Neutrophils # (Auto) 8.3 x10^3/uL (1.8-7.7) Lymphocytes # (Auto) 1.0 x10^3/uL (1.0-4.8) Monocytes # (Auto) 0.9 x10^3/uL (0.0-1.1) Eosinophils # (Auto) 0.1 x10^3/uL (0.0-0.7) Basophils # (Auto) 0.1 x10^3/uL (0.0-0.2) Prothrombin Time 25.1 SEC (11.7-14.0) Prothromb Time International Ratio 2.3 (0.8-1.1) Activated Partial Thromboplast Time 44 SEC (24-38) Sodium Level 143 mmol/L (136-145) Potassium Level 3.2 mmol/L (3.5-5.1) Chloride Level 102 mmol/L (98-107) Carbon Dioxide Level 26 mmol/L (21-32) Anion Gap 15 (6-14) Blood Urea Nitrogen 16 mg/dL (7-20) Creatinine 0.7 mg/dL (0.6-1.0) Estimated GFR (Cockcroft-Gault) 82.0 BUN/Creatinine Ratio 23 (6-20) Glucose Level 99 mg/dL (70-99) Calcium Level 8.9 mg/dL (8.5-10.1) Magnesium Level 1.8 mg/dL (1.8-2.4) Total Bilirubin 0.8 mg/dL (0.2-1.0) Aspartate Amino Transf (AST/SGOT) 49 U/L (15-37) Alanine Aminotransferase (ALT/SGPT) 39 U/L (14-59) Alkaline Phosphatase 66 U/L (46-116) Troponin I High Sensitivity 10 ng/L (4-50) 11 ng/L (4-50) PK-Yqo-D-Type Natriuretic Peptide 896 pg/mL (0-124) Total Protein 7.1 g/dL (6.4-8.2) Albumin 3.0 g/dL (3.4-5.0) Albumin/Globulin Ratio 0.7 (1.0-1.7) Laboratory Tests Test 11/02/21 11:34 11/02/21 14:37 White Blood Count 10.3 x10^3/uL (4.0-11.0) Red Blood Count 4.26 x10^6/uL (3.50-5.40) Hemoglobin 12.9 g/dL (12.0-15.5) Hematocrit 39.1 % (36.0-47.0) Mean Corpuscular Volume 92 fL (79-100) Mean Corpuscular Hemoglobin 30 pg (25-35) Mean Corpuscular Hemoglobin Concent 33 g/dL (31-37) Red Cell Distribution Width 14.3 % (11.5-14.5) Platelet Count 227 x10^3/uL (140-400) Neutrophils (%) (Auto) 80 % (31-73) Lymphocytes (%) (Auto) 10 % (24-48) Monocytes (%) (Auto) 8 % (0-9) Eosinophils (%) (Auto) 1 % (0-3) Basophils (%) (Auto) 1 % (0-3) Neutrophils # (Auto) 8.3 x10^3/uL (1.8-7.7) Lymphocytes # (Auto) 1.0 x10^3/uL (1.0-4.8) Monocytes # (Auto) 0.9 x10^3/uL (0.0-1.1) Eosinophils # (Auto) 0.1 x10^3/uL (0.0-0.7) Basophils # (Auto) 0.1 x10^3/uL (0.0-0.2) Prothrombin Time 25.1 SEC (11.7-14.0) Prothromb Time International Ratio 2.3 (0.8-1.1) Activated Partial Thromboplast Time 44 SEC (24-38) Sodium Level 143 mmol/L (136-145) Potassium Level 3.2 mmol/L (3.5-5.1) Chloride Level 102 mmol/L (98-107) Carbon Dioxide Level 26 mmol/L (21-32) Anion Gap 15 (6-14) Blood Urea Nitrogen 16 mg/dL (7-20) Creatinine 0.7 mg/dL (0.6-1.0) Estimated GFR (Cockcroft-Gault) 82.0 BUN/Creatinine Ratio 23 (6-20) Glucose Level 99 mg/dL (70-99) Calcium Level 8.9 mg/dL (8.5-10.1) Magnesium Level 1.8 mg/dL (1.8-2.4) Total Bilirubin 0.8 mg/dL (0.2-1.0) Aspartate Amino Transf (AST/SGOT) 49 U/L (15-37) Alanine Aminotransferase (ALT/SGPT) 39 U/L (14-59) Alkaline Phosphatase 66 U/L (46-116) Troponin I High Sensitivity 10 ng/L (4-50) 11 ng/L (4-50) UI-Qiv-W-Type Natriuretic Peptide 896 pg/mL (0-124) Total Protein 7.1 g/dL (6.4-8.2) Albumin 3.0 g/dL (3.4-5.0) Albumin/Globulin Ratio 0.7 (1.0-1.7) Images: Images PROCEDURE: CHEST AP ONLY XR CHEST 1V History: Short of air. Comparison: 10/15/2020 Technique: Portable AP radiograph of the chest. Findings: The lungs are adequately and symmetrically inflated. No focal airspace consolidation, pleural effusion or pneumothorax. Cardiomediastinal silhouette and pulmonary vasculature are within normal limits. Resuscitation pads overlie the cardiomediastinal silhouette. Degenerative changes of the right shoulder. Soft tissues are unremarkable. Impression: 1. No acute cardiopulmonary process. Assessment/Plan Assessment/Plan Acute A. fib RVR Mild hypokalemia Appropriate coagulopathy consistent with warfarin use Recent right hip [place] Hypothyroidism, presumed uncontrolled History of total thyroidectomy for supposedly thyroid cancer Admit to hospitalist service for further management Cardiology consult for A. fib management Continue telemetry monitoring Pending records from [facility] Pending records from [facility] where she had her thyroidectomy Pending thyroid panel Warfarin for DVT prophylaxis Cardiac diet CODE STATUS full Discussed with RN and SW Disposition inpatient management as above DPOA: Justifications for Admission Other Justification SARA QUIROGA MD Nov 02, 2021 16:03
[2021-11-02] MEDS ORDERED: SENNOSIDES 8.6 MG TABLET PO PRN (16:15)
[2021-11-02] MEDS ORDERED: diphenhydrAMINE 50 MG/ML VIAL IVP PRN (16:15)
[2021-11-02] MEDS ORDERED: ZOLPIDEM 5 MG TABLET. PO PRN (16:15)
[2021-11-02] MEDS ORDERED: DEXTROSE 50% 25 GM / 50ML DISP.SYRIN. IV PRN (16:15)
[2021-11-02] MEDS ORDERED: DOCUSATE SODIUM 100 MG CAPSULE. PO PRN (16:15)
[2021-11-02] MEDS ORDERED: LORazepam 0.5 MG TABLET PO PRN (16:15)
[2021-11-02] MEDS ORDERED: PROCHLORPERAZINE 10 MG/2 ML VIAL. IV PRN (16:15)
[2021-11-02] MEDS ORDERED: diphenhydrAMINE HCL 25 MG CAPSULE PO PRN ×2 (16:15)
[2021-11-02 16:21] VITALS: BP 117/62
[2021-11-02] MEDS: METOPROLOL TART IMMED RELEASE 25 MG TABLET. PO SCH ×2 (16:21→23:55)
[2021-11-02] MEDS: FLECAINIDE ACETATE 50 MG TABLET. PO SCH (18:04)
[2021-11-02 19:22] VITALS: BP 83/41
[2021-11-02 23:11] VITALS: BP 102/52
[2021-11-03] VITALS (9 sets, daily range): BP systolic 89–120; BP diastolic 40–54
[2021-11-03 02:10] LABS: BASO % 0 % (0-3); EOS # 0.2 x10^3/uL (0.0-0.7); EOS % 3 % (0-3); HEMATOCRIT 34.8 % (36.0-47.0); HEMOGLOBIN 11.7 g/dL (12.0-15.5); LYMPH # 1.2 x10^3/uL (1.0-4.8); LYMPH % 20 % (24-48); MEAN CORPUSCULAR HEMOGLOBIN 31 pg (25-35); MEAN CORPUSCULAR HGB CONC 34 g/dL (31-37); MEAN CORPUSCULAR VOLUME 92 fL (79-100); MONO # 0.7 x10^3/uL (0.0-1.1); MONO % 11 % (0-9); NEUT # 4.1 x10^3/uL (1.8-7.7); NEUT % 66 % (31-73); PLATELET COUNT 218 x10^3/uL (140-400); RED BLOOD COUNT 3.79 x10^6/uL (3.50-5.40); RED CELL DISTRIBUTION WIDTH 13.9 % (11.5-14.5); WHITE BLOOD COUNT 6.2 x10^3/uL (4.0-11.0)
[2021-11-03 03:08] LABS: CALCIUM 7.9 mg/dL (8.5-10.1); CREATININE 0.5 mg/dL (0.6-1.0); GFR 120.9; POTASSIUM 4.2 mmol/L (3.5-5.1)
[2021-11-03] MEDS: METOPROLOL TART IMMED RELEASE 25 MG TABLET. PO SCH ×3 (05:43→18:00)
[2021-11-03] MEDS ORDERED: LEVOTHYROXINE 150 MCG TABLET PO SCH (06:00)
[2021-11-03] MEDS ORDERED: OMEGA-3 FATTY ACIDS/FISH OIL 1,000 MG CAPSULE. PO SCH (09:00)
[2021-11-03] MEDS ORDERED: NON FORMULARY ITEM (Ubidecarenone (Co Q-10) 100 MG) PO SCH (09:00)
[2021-11-03] MEDS ORDERED: CITALOPRAM 20 MG TABLET. PO SCH (09:00)
[2021-11-03] MEDS ORDERED: ZINC SULFATE 220 MG CAPSULE. PO SCH (09:00)
[2021-11-03] MEDS ORDERED: D MANNOSE 500 MG PO SCH (09:00)
[2021-11-03] MEDS ORDERED: CHOLECALCIFEROL (VITAMIN D3) 1,000 UNIT TABLET PO SCH (09:00)
[2021-11-03] MEDS ORDERED: LACTOBACILLUS RHAMNOSUS GG 1 CAPSULE. PO SCH (09:00)
--- NOTE | 2021-11-03 09:44 | PDOC ---
PROGRESS NOTES Date of Service: DATE: 11/03/21 TIME: 09:43 Subjective Subjective Feeling better. No new complaints. Objective Objective Vital Signs Date Time Temp Pulse Resp B/P (MAP) Pulse Ox O2 Delivery O2 Flow Rate FiO2 11/03/21 07:00 98.1 83 18 111/46 (67) 90 Room Air 98.1 Intake and Output 11/03/21 07:00 Intake Total 60 ml Output Total 150 ml Balance -90 ml Intake Oral 60 ml Output Urine Total 150 ml Physical Exam Heart: No murmurs, Other (AFIB RVR) Extremities: No cyanosis, No edema General: Alert, Oriented X3, Cooperative, No acute distress HEENT: Atraumatic, Mucous membr. moist/pink Lungs: Other (diminished bases) MUSCULOSKELETAL: Osteoarthritic changes both hands Neuro: Normal speech, Sensation intact Psych/Mental Status: Mental status NL, Mood NL Skin: No breakdown Assessment Assessment 1. AFIB RVR: Presently sinus rhythm. On flecainide, change to twice daily. Continue warfarin for stroke prophylaxis 2. Reported S/P RTHA: 10/29/2021 at [facility] 3. HTN: controlled 4. Hypothyroidism: on replacement Plan Plan of Care Problems Medical Problems: (1) Atrial fibrillation with rapid ventricular response Status: Acute Comment Review of Relevant I have reviewed the following items noah (where applicable) has been applied. Labs Laboratory Tests Test 11/02/21 11:34 11/02/21 14:37 11/02/21 16:56 11/02/21 17:30 White Blood Count 10.3 x10^3/uL (4.0-11.0) Red Blood Count 4.26 x10^6/uL (3.50-5.40) Hemoglobin 12.9 g/dL (12.0-15.5) Hematocrit 39.1 % (36.0-47.0) Mean Corpuscular Volume 92 fL (79-100) Mean Corpuscular Hemoglobin 30 pg (25-35) Mean Corpuscular Hemoglobin Concent 33 g/dL (31-37) Red Cell Distribution Width 14.3 % (11.5-14.5) Platelet Count 227 x10^3/uL (140-400) Neutrophils (%) (Auto) 80 % (31-73) Lymphocytes (%) (Auto) 10 % (24-48) Monocytes (%) (Auto) 8 % (0-9) Eosinophils (%) (Auto) 1 % (0-3) Basophils (%) (Auto) 1 % (0-3) Neutrophils # (Auto) 8.3 x10^3/uL (1.8-7.7) Lymphocytes # (Auto) 1.0 x10^3/uL (1.0-4.8) Monocytes # (Auto) 0.9 x10^3/uL (0.0-1.1) Eosinophils # (Auto) 0.1 x10^3/uL (0.0-0.7) Basophils # (Auto) 0.1 x10^3/uL (0.0-0.2) Prothrombin Time 25.1 SEC (11.7-14.0) Prothromb Time International Ratio 2.3 (0.8-1.1) Activated Partial Thromboplast Time 44 SEC (24-38) Sodium Level 143 mmol/L (136-145) Potassium Level 3.2 mmol/L (3.5-5.1) Chloride Level 102 mmol/L (98-107) Carbon Dioxide Level 26 mmol/L (21-32) Anion Gap 15 (6-14) Blood Urea Nitrogen 16 mg/dL (7-20) Creatinine 0.7 mg/dL (0.6-1.0) Estimated GFR (Cockcroft-Gault) 82.0 BUN/Creatinine Ratio 23 (6-20) Glucose Level 99 mg/dL (70-99) Calcium Level 8.9 mg/dL (8.5-10.1) Magnesium Level 1.8 mg/dL (1.8-2.4) Total Bilirubin 0.8 mg/dL (0.2-1.0) Aspartate Amino Transf (AST/SGOT) 49 U/L (15-37) Alanine Aminotransferase (ALT/SGPT) 39 U/L (14-59) Alkaline Phosphatase 66 U/L (46-116) Troponin I High Sensitivity 10 ng/L (4-50) 11 ng/L (4-50) 13 ng/L (4-50) MH-Zaj-Y-Type Natriuretic Peptide 896 pg/mL (0-124) Total Protein 7.1 g/dL (6.4-8.2) Albumin 3.0 g/dL (3.4-5.0) Albumin/Globulin Ratio 0.7 (1.0-1.7) Thyroid Stimulating Hormone (TSH) 5.196 uIU/mL (0.358-3.74) Thyroxine (T4) 19.0 ug/dL (4.5-12.0) Free Triiodothyronine (T3) pg/mL 2.56 pg/mL (2.18-3.98) Total Triiodothyronine 110 ng/dL (71-180) Test 11/03/21 01:25 White Blood Count 6.2 x10^3/uL (4.0-11.0) Red Blood Count 3.79 x10^6/uL (3.50-5.40) Hemoglobin 11.7 g/dL (12.0-15.5) Hematocrit 34.8 % (36.0-47.0) Mean Corpuscular Volume 92 fL (79-100) Mean Corpuscular Hemoglobin 31 pg (25-35) Mean Corpuscular Hemoglobin Concent 34 g/dL (31-37) Red Cell Distribution Width 13.9 % (11.5-14.5) Platelet Count 218 x10^3/uL (140-400) Neutrophils (%) (Auto) 66 % (31-73) Lymphocytes (%) (Auto) 20 % (24-48) Monocytes (%) (Auto) 11 % (0-9) Eosinophils (%) (Auto) 3 % (0-3) Basophils (%) (Auto) 0 % (0-3) Neutrophils # (Auto) 4.1 x10^3/uL (1.8-7.7) Lymphocytes # (Auto) 1.2 x10^3/uL (1.0-4.8) Monocytes # (Auto) 0.7 x10^3/uL (0.0-1.1) Eosinophils # (Auto) 0.2 x10^3/uL (0.0-0.7) Basophils # (Auto) 0.0 x10^3/uL (0.0-0.2) Sodium Level 143 mmol/L (136-145) Potassium Level 4.2 mmol/L (3.5-5.1) Chloride Level 107 mmol/L (98-107) Carbon Dioxide Level 27 mmol/L (21-32) Anion Gap 9 (6-14) Blood Urea Nitrogen 15 mg/dL (7-20) Creatinine 0.5 mg/dL (0.6-1.0) Estimated GFR (Cockcroft-Gault) 120.9 Glucose Level 81 mg/dL (70-99) Calcium Level 7.9 mg/dL (8.5-10.1) Troponin I High Sensitivity 14 ng/L (4-50) Medications Current Medications Acetaminophen (Tylenol) 650 mg PRN Q4HRS PRN PO FEVER > 100.3'F; Start 11/02/21 at 13:15; Stop 11/03/21 at 13:14 Acetaminophen (Tylenol) 650 mg PRN Q4HRS PRN PO TEMP OVER 100.4F OR MILD PAIN; Start 11/02/21 at 16:15 Amiodarone HCl 150 mg/Dextrose 103 ml @ 618 mls/hr 1X ONCE IV ; Start 11/02/21 at 12:00; Stop 11/02/21 at 12:09; Status DC Amiodarone HCl 450 mg/Dextrose 259 ml @ 34.533 mls/ hr CONT PRN IV SEE I/O RECORD; Start 11/02/21 at 12:00; Stop 11/03/21 at 11:59 Citalopram Hydrobromide (CeleXA) 20 mg DAILY PO Last administered on 11/03/21at 08:49; Start 11/03/21 at 09:00 Dextrose (Dextrose 50%-Water Syringe) 12.5 gm PRN Q15MIN PRN IV SEE COMMENTS; Start 11/02/21 at 16:15; Stop 11/02/21 at 17:17; Status DC Digoxin (Lanoxin) 500 mcg 1X ONCE IV Last administered on 11/02/21at 14:15; Start 11/02/21 at 14:00; Stop 11/02/21 at 14:01; Status DC Diltiazem HCl (Cardizem 24hr Cd) 120 mg DAILY PO Last administered on 11/02/21at 18:03; Start 11/02/21 at 19:00 Diphenhydramine HCl (Benadryl) 25 mg PRN Q6HRS PRN IVP ITCHING; Start 11/02/21 at 16:15 Diphenhydramine HCl (Benadryl) 25 mg PRN Q6HRS PRN PO ITCHING; Start 11/02/21 at 16:15 Diphenhydramine HCl (Benadryl) 25 mg PRN QHS PRN PO INSOMNIA, 1st CHOICE; Start 11/02/21 at 16:15 Docusate Sodium (Colace) 100 mg PRN DAILY PRN PO HARD STOOLS; Start 11/02/21 at 16:15 Fish Oil (Fish Oil) 1,000 mg DAILY PO Last administered on 11/03/21at 08:48; Start 11/03/21 at 09:00 Flecainide Acetate (Tambocor) 50 mg DAILY PO Last administered on 11/02/21at 18:04; Start 11/02/21 at 19:00 Lactobacillus Rhamnosus (Culturelle) 1 cap DAILY PO Last administered on 11/03/21at 08:48; Start 11/03/21 at 09:00 Levothyroxine Sodium (Synthroid) 150 mcg DAILY06 PO Last administered on 11/03/21at 05:37; Start 11/03/21 at 06:00 Lorazepam (Ativan Inj) 0.25 mg PRN Q4HRS PRN IV ANXIETY / AGITATION; Start 11/02/21 at 16:15 Lorazepam (Ativan) 0.5 mg PRN Q6HRS PRN PO ANXIETY / AGITATION; Start 11/02/21 at 16:15 Metoprolol Tartrate (Lopressor Vial) 5 mg 1X ONCE IVP Last administered on 11/02/21at 12:23; Start 11/02/21 at 12:45; Stop 11/02/21 at 12:46; Status DC Metoprolol Tartrate (Lopressor) 25 mg Q6HRS PO Last administered on 11/02/21at 16:21; Start 11/02/21 at 18:00 Non-Formulary Medication (D-Mannose (Azo D-Mannose)) 500 mg DAILY PO ; Start 11/03/21 at 09:00; Status UNV Non-Formulary Medication (Flecainide Acetate ) 0.5 tab HS PO ; Start 11/03/21 at 21:00; Status UNV Non-Formulary Medication (Ubidecarenone (Co Q-10)) 100 mg DAILY PO ; Start 11/03/21 at 09:00; Status UNV Ondansetron HCl (Zofran) 4 mg PRN Q6HRS PRN IVP NAUSEA/VOMITING, 1st CHOICE; Start 11/02/21 at 16:15 Ondansetron HCl (Zofran) 4 mg PRN Q8HRS PRN IVP NAUSEA/VOMITING; Start 11/02/21 at 13:15; Stop 11/03/21 at 13:14 Potassium Chloride (Klor-Con) 40 meq 1X ONCE PO Last administered on 11/02/21at 13:25; Start 11/02/21 at 13:00; Stop 11/02/21 at 13:01; Status DC Prochlorperazine Edisylate (Compazine) 10 mg PRN Q6HRS PRN IV NAUSEA/VOMITING, 2nd CHOICE; Start 11/02/21 at 16:15 Sennosides (Senna) 17.2 mg PRN BID PRN PO CONSTIPATION; Start 11/02/21 at 16:15 Vitamin D (Vitamin D3) 2,000 unit DAILY PO Last administered on 11/03/21at 08:48; Start 11/03/21 at 09:00 Zinc Sulfate (Orazinc) 220 mg DAILY PO Last administered on 11/03/21at 08:49; Start 11/03/21 at 09:00 Zolpidem Tartrate (Ambien) 2.5 mg PRN QHS PRN PO INSOMNIA, 2nd CHOICE; Start 11/02/21 at 16:15 Vitals/I & O Vital Sign - Last 24 Hours 11/02/21 11/02/21 11/02/21 11/02/21 11:15 11:47 12:02 12:17 Temp 98.7 98.7 Pulse 201 166 160 146 Resp 22 15 21 14 B/P (MAP) 148/74 (98) 110/55 (73) 121/75 (90) 122/55 (77) Pulse Ox 99 99 100 98 O2 Delivery Room Air Room Air Room Air Room Air 11/02/21 11/02/21 11/02/21 11/02/21 12:23 12:32 12:47 13:01 Pulse 166 122 132 135 Resp 18 13 16 B/P (MAP) 122/55 114/65 (81) 96/56 (69) 103/54 (70) Pulse Ox 99 99 99 O2 Delivery Room Air Room Air Room Air 11/02/21 11/02/21 11/02/21 3/4/22 13:32 14:02 14:15 14:32 Pulse 134 142 130 124 Resp 14 26 20 B/P (MAP) 118/74 (89) 95/58 (70) 95/58 112/60 (77) Pulse Ox 98 98 99 O2 Delivery Room Air Room Air Room Air 11/02/21 11/02/21 11/02/21 11/02/21 14:35 16:21 16:21 18:03 Pulse 137 137 94 Resp 20 B/P (MAP) 117/62 (80) 117/62 117/62 O2 Delivery Room Air 11/02/21 11/02/21 11/02/21 11/02/21 18:04 19:22 20:00 23:11 Temp 99.1 98.3 99.1 98.3 Pulse 94 87 79 Resp 16 16 B/P (MAP) 117/62 83/41 (55) 102/52 (69) Pulse Ox 99 98 O2 Delivery Room Air Room Air Room Air 11/02/21 11/03/21 11/03/21 11/03/21 23:55 03:16 05:43 07:00 Temp 98.5 98.1 98.5 98.1 Pulse 74 82 77 83 Resp 16 18 B/P (MAP) 93/42 104/40 (61) 97/41 111/46 (67) Pulse Ox 100 90 O2 Delivery Room Air Room Air Intake and Output 11/02/21 11/02/21 11/03/21 15:00 23:00 07:00 Intake Total 60 ml 0 ml Output Total 150 ml Balance -90 ml 0 ml RAMIN NASCIMENTO MD Nov 03, 2021 09:44
[2021-11-03] MEDS ORDERED: traMADol 50 MG TABLET PO PRN ×2 (10:45→12:30)
[2021-11-03 10:49] LABS: PROTHROMBIN TIME PATIENT 25.4 SEC (11.7-14.0)
[2021-11-03 10:54] LABS: PHOSPHORUS 3.4 mg/dL (2.6-4.7)
[2021-11-03] MEDS: FLECAINIDE ACETATE 50 MG TABLET. PO SCH (12:22)
[2021-11-03] MEDS ORDERED: DILT120C99 PO (12:32)
[2021-11-03] MEDS ORDERED: TRAM50TA PO (12:32)
[2021-11-03] MEDS ORDERED: LORA0.5T96 PO (12:32)
[2021-11-03] MEDS ORDERED: METO25TA4 PO (12:32)
--- NOTE | 2021-11-03 12:35 | SNU/HH DC ---
DISCHARGE WITH HOME HEALTH DISCHARGE INFORMATION: Final Diagnosis: Problems Medical Problems: (1) Atrial fibrillation with rapid ventricular response Status: Acute Condition on Discharge: Stable CODE STATUS: Code Status: Full HOME HEALTH: Face to Face: I certify this patient is under my care and that I, or a nurse practitioner or physician's physical laboratory assistant working with me, had a face to face encounter that meets the physician face to face encounter requirements with this patient on []. Medical Complications: S/P Joint Replacement, Other (Resolving A. fib) Nursing Home For: Assess & Educate Safety RN For Eval/Treatment: Yes Physical Therapy For: Evalulation/Treatment Occupational Therapy For: Evaluation/Treatment Home Health Aide For: Self-care PURCHASING AND FISCAL CLERK For: Community Resources Pt Meets Homebound Status: Unsteady balance w/ amb, POST DISCHARGE ORDERS: DIET AFTER DISCHARGE: Cardiac CERTIFICATION STATEMENT: Certification Statement: Certification Statement: Based on the above finding, I certify that this patient is confined to the home and needs intermittent detention care, physical therapy and/or speech therapy, or continues to need occupational therapy.~ This patient is under my care, and I have initiated the establishment of the plan of care.~ This patient will be followed by myself or a community physician who will periodically review the plan of care. Home Meds Active Scripts Lorazepam (ATIVAN) 0.5 Mg Tablet, 0.5 MG PO PRN Q6HRS PRN for ANXIETY / AGITATION for 14 Days, #20 TAB Prov:CASTLE,NIAL K III DO 11/03/21 Tramadol Hcl (TRAMADOL HCL) 50 Mg Tablet, 50 MG PO PRN Q6HRS PRN for PAIN for 10 Days, #20 TAB Prov:CASTLE,NIAL K III DO 11/03/21 Diltiazem Hcl (DILTIAZEM 24HR CD) 120 Mg Cap.er.24h, 120 MG PO DAILY for . for 30 Days, #30 CAP.SR Prov:CASTLE,NIAL K III DO 11/03/21 Metoprolol Tartrate (METOPROLOL TARTRATE) 25 Mg Tablet, 25 MG PO Q6HRS for . for 30 Days, #120 TAB Prov:CASTLE,NIAL K III DO 11/03/21 Reported Medications D-Mannose (Azo D-Mannose) 500 Mg Capsule, 500 MG PO DAILY for suplement, CAP 3/4/22 Lactobacillus Combo No.10 (PROBIOTIC) 1 Each Capsule, 1 TAB PO DAILY for suplement for 30 Days, #30 TAB 0 Refills 11/02/21 Progesterone,Micronized (PROGESTERONE) 100 Mg Capsule, 1 CAP PO QHS for menopause for 30 Days, #30 CAP 0 Refills 11/02/21 Warfarin Sodium (WARFARIN SODIUM) 2.5 Mg Tablet, 2.5 MG PO DAILY for blood thinner, TAB 11/02/21 Flecainide Acetate (FLECAINIDE ACETATE) 100 Mg Tablet, 0.5 TAB PO HS for cardiac, #60 TAB 5 Refills 11/02/21 Escitalopram Oxalate (ESCITALOPRAM OXALATE) 10 Mg Tablet, 1 TAB PO DAILY for mood, #30 TAB 3 Refills 11/02/21 [place]-3 Fatty Acids/Fish Oil (FISH OIL 1,000 MG SOFTGEL) 1 Each Capsule, 1 CAP PO DAILY for suplement for 30 Days, #30 CAP 0 Refills 11/02/21 Ubidecarenone (CO Q-10) 100 Mg Capsule, 100 MG PO DAILY for suplement, CAP 11/02/21 Cholecalciferol (Vitamin D3) (D3-2000) 50 Mcg Capsule, 50 MCG PO DAILY for replacement, CAP 11/02/21 Zinc (ZINC) 50 Mg Tablet, 1 TAB PO DAILY for replacement for 30 Days, #30 TAB 0 Refills 11/02/21 Levothyroxine Sodium (SYNTHROID) 150 Mcg Tablet, 1 TAB PO DAILY for thyroid, #30 TAB 5 Refills 11/02/21 Discontinued Reported Medications Diltiazem Hcl (CARDIZEM CD) 240 Mg Cap.er.24h, 0.5 CAP PO HS for cardiac, #30 CAP 5 Refills 11/02/21 DEMETRIA GENAO III DO Nov 03, 2021 12:35
--- NOTE | 2021-11-03 13:40 | DS ---
DATE OF DISCHARGE: 11/03/2021 ADMITTING DIAGNOSIS: Atrial fibrillation with rapid ventricular response. DISCHARGE DIAGNOSES: Resolving atrial fibrillation with rapid ventricular response, recent hip fracture with open reduction and internal fixation, anxiety, chronic pain, history of hypotension, history of thyroidectomy, D and C. CONSULTS: Cardiology. PROCEDURES: None. HOSPITAL COURSE: The patient is a pleasant, middle-aged female who had recent hip surgery after a fall. She then went to rehab, then went home and when she went to the [facility] clinic, she was found to be fatigued and her pulse was 160. She was admitted with AFib with RVR. The above consults were obtained. Today, I saw and examined her. She is back to sinus rhythm at 80 beats per minute. She is a little anxious, complaining of some pain. She does not like the oxycodone instant release tablets. She wants something different. I gave her some Ultram that seems to be helping. If okay with Cardiology, we plan to discharge to home. DISPOSITION: Home. ACTIVITY: As tolerated. DIET: Cardiac. MEDICATIONS: Ultram 50 q.6 hours, Cardizem 120 a day, lorazepam 0.4 q.6 hours, metoprolol 25 q.6 hours, Vitamin D, escitalopram 10 a day, flecainide 0.5 at bedtime, probiotic, Synthroid 150 a day, omega-3 fatty acids, progesterone, CoQ10, Coumadin 2.5 a day, and zinc 50 every day. TOTAL TIME: [address]: Iris TID: [id number]
--- NOTE | 2021-11-03 16:34 | NUR ---
Patient state she had her oxycodone IR in her purse from when she had her hip done & took one last night. Patient is worried this might be causing her hypotension. Patient educated not to take anymore. Dr. Gama notified & ordered tramadol for her to try.
[2021-11-03] MEDS ORDERED: IV NORMAL SALINE 500ML BAG 500 ML IV ONE (17:15)
[2021-11-03] MEDS ORDERED: FLEC100T PO (18:14)
--- NOTE | 2021-11-03 18:50 | NUR ---
Discharge Note: [facility] [address] [place] [address] Discharge instructions and discharge home medications reviewed with Patient and a copy given. All questions have been answered and understanding verbalized. The following instructions and handouts were given: discharge instructions, med list, follow ups, education Discontinued lines and drains: Peripheral IV intact. Patient discharged to Home or Self Care with Spouse via Wheelchair at 1850. Addendum: 11/03/21 at 192 by ZHAO CUMMINS RN After 500cc bolus, BP better. Dr. Lanette altamirano with discharge. Patient states she already has rehab for her hip set up through [facility]. Patient told she could call if she needed anything.
[2021-11-03] MEDS ORDERED: FLECAINIDE ACETATE PO SCH (21:00)
[2021-11-03] MEDS ORDERED: FLECAINIDE ACETATE 50 MG TABLET. PO SCH (21:00)
== END 2021-11-03 18:50 | disposition home or self-care (01) | DRG 309 ==
LOC: ER 11:15 → 6 SOUTH 12:08
PROVIDERS: ADMIT Internal Medicine; ATTEND Internal Medicine
DX: I48.0 Paroxysmal atrial fibrillation (principal); D68.9 Coagulation defect, unspecified; E87.6 Hypokalemia; E89.0 Postprocedural hypothyroidism; I10 Essential (primary) hypertension; M19.011 Primary osteoarthritis, right shoulder; Z96.641 Presence of right artificial hip joint; F41.9 Anxiety disorder, unspecified; G89.29 Other chronic pain; I95.9 Hypotension, unspecified; M19.90 Unspecified osteoarthritis, unspecified site; Z79.01 Long term (current) use of anticoagulants; Z85.850 Personal history of malignant neoplasm of thyroid
CPT/HCPCS: 36415; 71045; 80048; 80053; 83735; 83880; 84100; 84436; 84443; 84480; 84481; 84482; 84484; 85025; 85610; 85730; 86800; 93005; 96374; 96375; J1160; J3490; J7040; 99291-25; G0378